=== PATIENT | female | born 1940 | race African-American/Black ===

== ENCOUNTER 2019-11-03 14:58 | Emergency (ER) | payer MEDICARE ==
[~2019-11-03] VITALS: Ht 152.4 cm; Wt 86.0 kg
[2019-11-03 15:31] VITALS: BP 175/93
== END 2019-11-03 15:38 | disposition left against medical advice (07) ==
LOC: ER 14:58
DX: M79.606 Pain in leg, unspecified (principal); Z53.21 Procedure and treatment not carried out due to patient leaving prior to being seen by health care provider

== ENCOUNTER 2020-06-14 16:11 | Emergency (ER) | payer MEDICARE ==
[~2020-06-14] VITALS: Ht 157.5 cm; Wt 50.0 kg
[2020-06-14 16:27] VITALS: BP 158/87
== END 2020-06-14 18:30 ==
LOC: EDBD 16:11 → ER 16:11
DX: M25.511 Pain in right shoulder (principal); I49.9 Cardiac arrhythmia, unspecified
CPT/HCPCS: 93005; 99281; 99283

== ENCOUNTER 2020-07-09 06:31 | Emergency (ER) | payer MEDICARE ==
[~2020-07-09] VITALS: Ht 157.5 cm; Wt 50.0 kg
[2020-07-09] MEDS ORDERED: ACETAMINOPHEN 325MG TABLET PO STA (07:29)
[2020-07-09] MEDS ORDERED: SODIUM CHLORIDE 0.9% 1,000 ML IV ONE (07:29)
[2020-07-09 07:57] LABS: BASOPHILS % 0.3 % (0.0-2.0); EOSINOPHILS % 0.1 % (0.0-5.0); HEMATOCRIT. 33.2 % (36.0-48.0); HEMOGLOBIN. 10.4 g/dL (12.0-16.0); MEAN CORPUSCULAR HEMOGLOBIN 27.4 pg (28.0-32.0); MEAN CORPUSCULAR VOLUME 87.5 fL (81.0-99.0); MEAN PLATELET VOLUME 7.7 fl (7.4-10.4); MONOCYTES % 7.7 % (2.0-8.0); NEUTROPHILS % 81.9 % (40.0-76.0); PLATELET 417 x1000/uL (130-400); RED BLOOD CELL COUNT 3.79 mill/uL (4.2-5.4); RED CELL DISTRIBUTION WIDTH 18.2 % (11.6-14.6)
[2020-07-09 08:04] LABS: CHLORIDE 98 mEq/L (98-107)
[2020-07-09 08:50] VITALS: BP 138/89
== END 2020-07-09 09:07 | disposition left against medical advice (07) ==
LOC: ER 06:31
DX: J18.9 Pneumonia, unspecified organism (principal); G89.4 Chronic pain syndrome; M25.511 Pain in right shoulder; Z20.828 Contact with and (suspected) exposure to other viral communicable diseases; R91.8 Other nonspecific abnormal finding of lung field; I10 Essential (primary) hypertension; F17.290 Nicotine dependence, other tobacco product, uncomplicated; Z95.1 Presence of aortocoronary bypass graft
CPT/HCPCS: 36415; 71045; 80048; 85025; 87635; 96360; 99284; 99406; C9803; J7030